=== PATIENT | male | born 1985 | race Caucasian/White ===

== ENCOUNTER → 2021-07-16 | Outpatient (REF) | payer OTHER ==
[2021-07-16 09:21] LABS: SEMEN APPEARANCE OPAQUE (OPAQUE); SEMEN VISCOSITY LIQUID (LIQUID); SEMEN pH 8.5 (7.0-8.0)
[2021-07-16 09:22] LABS: SPERM CONCENTRATION 114.6 M/ml (>=15.0); WBC CONCENTRATION <=1 M/ml (<=1 M/ml)
== END ==
LOC: M LAB REF 09:16
PROVIDERS: ATTEND Obstetrics & Gynecology
DX: N46.8 Other male infertility (principal)

== ENCOUNTER 2023-05-29 21:56 | Inpatient (IN) | payer OTHER ==
[~2023-05-29] VITALS: Ht 170.2 cm; Wt 89.5 kg
[2023-05-29 22:52] LABS: BASO # 0.1 10^3/uL (0.0-0.2); BASO % 0.3 % (0.0-1.0); EOS # 0.1 10^3/uL (0.0-0.5); EOS % 0.5 % (0.0-3.0); HEMATOCRIT 47.3 % (42.0-52.0); HEMOGLOBIN 16.2 g/dl (13.5-17.5); LYMPH # 2.3 10^3/uL (1.5-5.0); LYMPH % 15.2 % (24.0-44.0); MEAN CORPUSCULAR HEMOGLOBIN 30.2 pg (27.0-33.0); MEAN CORPUSCULAR HGB CONC 34.2 g/dl (32.0-36.5); MEAN CORPUSCULAR VOLUME 88.1 fl (80.0-96.0); MONO # 1.4 10^3/uL (0.0-0.8); MONO % 9.4 % (2.0-8.0); NEUTROPHILS # 11.3 10^3/uL (1.5-8.5); NEUTROPHILS % 74.1 % (36.0-66.0); PLATELET COUNT, AUTOMATED 410 10^3/uL (150-450); RED BLOOD COUNT 5.37 10^6/uL (4.30-6.10); WHITE BLOOD COUNT 15.2 10^3/uL (4.0-10.0)
[2023-05-29 23:18] LABS: RSV AMPLIFICATION NEGATIVE (NEGATIVE)
[2023-05-29 23:19] LABS: ALBUMIN 4.4 G/DL (3.2-5.2); BILIRUBIN,DIRECT 0.2 MG/DL (<0.4); BILIRUBIN,TOTAL 0.8 MG/DL (0.3-1.2); TOTAL PROTEIN 7.6 G/DL (5.7-8.2)
[2023-05-30] MEDS ORDERED: METOCLOPRAMIDE INJ 10MG/2ML VIAL IV ONE (00:05)
[2023-05-30] MEDS ORDERED: NS 1,000 ML IV ONE (00:05)
[2023-05-30] MEDS ORDERED: KETOROLAC 30 MG/ML 1ML VIAL IM ONE (00:05)
[2023-05-30] MEDS ORDERED: ISOVUE-370 76% 100ML VIAL As Ordered ONE (01:50)
[2023-05-30] MEDS ORDERED: HOME MED LIST COMPLETE! XX SCH (04:20)
[2023-05-30] MEDS ORDERED: HYDROmorphone 2 MG TAB PO PRN ×2 (04:50→12:00)
[2023-05-30 06:45] VITALS: BP 131/73; TEMP 98.1; O2SAT 94
[2023-05-30] MEDS: LR 1,000 ML IV SCH ×3 (06:57→21:56)
[2023-05-30] MEDS: HEPARIN SOD (PORCINE) 5000UNITS/ML 1ML VIAL/SYRINGE SC SCH ×3 (07:06→20:54)
[2023-05-30 07:56] LABS: BASO % 0.2 % (0.0-1.0); EOS % 0.1 % (0.0-3.0); HEMOGLOBIN 14.4 g/dl (13.5-17.5); LYMPH # 0.6 10^3/uL (1.5-5.0); LYMPH % 5.3 % (24.0-44.0); MEAN CORPUSCULAR HEMOGLOBIN 30.9 pg (27.0-33.0); MEAN CORPUSCULAR HGB CONC 35.1 g/dl (32.0-36.5); MONO # 0.3 10^3/uL (0.0-0.8); MONO % 2.8 % (2.0-8.0); NEUTROPHILS # 10.5 10^3/uL (1.5-8.5); NEUTROPHILS % 91.3 % (36.0-66.0); PLATELET COUNT, AUTOMATED 325 10^3/uL (150-450); RED BLOOD COUNT 4.66 10^6/uL (4.30-6.10); WHITE BLOOD COUNT 11.5 10^3/uL (4.0-10.0)
[2023-05-30 08:22] LABS: BLOOD UREA NITROGEN 17 MG/DL (9-23); CALCIUM LEVEL 8.8 MG/DL (8.5-10.1); CARBON DIOXIDE LEVEL 24 MMOL/L (20-31); CHLORIDE LEVEL 107 MMOL/L (98-107); CREATININE FOR GFR 1.02 MG/DL (0.70-1.30); GLOMERULAR FILTRATION RATE > 60.0 (>60); GLUCOSE, FASTING 155 MG/DL (60-100); MAGNESIUM LEVEL 1.9 MG/DL (1.8-2.4); POTASSIUM SERUM 4.6 MMOL/L (3.5-5.1); SODIUM LEVEL 139 MMOL/L (136-145)
[2023-05-30] MEDS: PANTOPRAZOLE 40MG VIAL IV SCH (09:35)
[2023-05-30 14:00] VITALS: BP_SYST 121; BP_DIAS 71; BP_DIAS 72; TEMP 98.1; TEMP 98.4; O2SAT 94; O2SAT 95
[2023-05-30] MEDS: ONDANSETRON 4MG 2ML VIAL IV PRN (15:45)
[2023-05-30 21:30] VITALS: BP 120/67; TEMP 97.5; O2SAT 98
[2023-05-30] MEDS ORDERED: KETOROLAC 30 MG/ML 1ML VIAL IV ONE (23:00)
[2023-05-31] MEDS: ONDANSETRON 4MG 2ML VIAL IV PRN (03:29)
[2023-05-31] MEDS: KETOROLAC 30 MG/ML 1ML VIAL IV PRN ×3 (03:34→20:08)
[2023-05-31] MEDS: HEPARIN SOD (PORCINE) 5000UNITS/ML 1ML VIAL/SYRINGE SC SCH ×3 (05:20→22:36)
[2023-05-31 05:25] VITALS: BP 118/68; TEMP 98.2; O2SAT 92
[2023-05-31] MEDS: LR 1,000 ML IV SCH ×3 (06:01→22:51)
[2023-05-31 06:19] LABS: BASO % 0.2 % (0.0-1.0); HEMATOCRIT 38.1 % (42.0-52.0); LYMPH # 0.9 10^3/uL (1.5-5.0); LYMPH % 8.2 % (24.0-44.0); MEAN CORPUSCULAR HEMOGLOBIN 30.5 pg (27.0-33.0); MEAN CORPUSCULAR HGB CONC 34.1 g/dl (32.0-36.5); MEAN CORPUSCULAR VOLUME 89.4 fl (80.0-96.0); MONO # 0.9 10^3/uL (0.0-0.8); MONO % 8.5 % (2.0-8.0); NEUTROPHILS % 82.6 % (36.0-66.0); PLATELET COUNT, AUTOMATED 263 10^3/uL (150-450); RED BLOOD COUNT 4.26 10^6/uL (4.30-6.10); WHITE BLOOD COUNT 10.9 10^3/uL (4.0-10.0)
[2023-05-31] MEDS: PERCOCET 5MG/325MG TAB PO PRN ×3 (06:32→20:42)
[2023-05-31 06:47] LABS: BLOOD UREA NITROGEN 18 MG/DL (9-23); CALCIUM LEVEL 8.3 MG/DL (8.5-10.1); CARBON DIOXIDE LEVEL 24 MMOL/L (20-31); CHLORIDE LEVEL 106 MMOL/L (98-107); GLOMERULAR FILTRATION RATE > 60.0 (>60); GLUCOSE, FASTING 107 MG/DL (60-100); MAGNESIUM LEVEL 1.7 MG/DL (1.8-2.4); POTASSIUM SERUM 3.9 MMOL/L (3.5-5.1); SODIUM LEVEL 141 MMOL/L (136-145)
[2023-05-31] MEDS: PANTOPRAZOLE 40MG VIAL IV SCH (08:48)
[2023-05-31] MEDS ORDERED: MAG SULF 1GM/100ML (MAG RUN) 1 GM in IV 1 EA IV ONE (09:00)
[2023-05-31] MEDS ORDERED: SIMETHICONE 80MG CHEW TAB PO PRN (11:50)
[2023-05-31 14:00] VITALS: BP 117/66; TEMP 98.2; O2SAT 89
[2023-05-31 20:44] VITALS: BP 121/65; TEMP 102.7; O2SAT 94
[2023-05-31] MEDS ORDERED: PROHANCE 279.3MG/ML 5ML VIAL As Ordered ONE (21:22)
[2023-05-31] MEDS ORDERED: PROHANCE 279.3MG/ML 15ML VIAL As Ordered ONE (21:22)
[2023-05-31 22:37] VITALS: TEMP 99.7
[2023-06-01] VITALS (9 sets, daily range): BP systolic 103–135; BP diastolic 47–69; TEMP 98.1–101; O2SAT 95
[2023-06-01] MEDS: ACETAMINOPHEN TAB 650MG DOSE (2X325MG) PO PRN ×2 (01:02→21:39)
[2023-06-01] MEDS: KETOROLAC 30 MG/ML 1ML VIAL IV PRN ×2 (02:10→18:34)
[2023-06-01] MEDS: PERCOCET 5MG/325MG TAB PO PRN ×4 (02:33→20:32)
[2023-06-01] MEDS: HEPARIN SOD (PORCINE) 5000UNITS/ML 1ML VIAL/SYRINGE SC SCH ×3 (05:19→21:39)
[2023-06-01] MEDS: LR 1,000 ML IV SCH ×2 (06:35→12:23)
[2023-06-01] MEDS: ONDANSETRON 4MG 2ML VIAL IV PRN ×3 (07:18→21:41)
[2023-06-01] MEDS ORDERED: DOCUSATE SODIUM 100MG CAPSULE PO SCH (09:00)
[2023-06-01] MEDS ORDERED: PILL CUTTER 1 EACH XX PRN (09:25)
[2023-06-01] MEDS: PIPERACILLIN/TAZOBACTAM SOD 3.375 GM in D5W MINI-BAG PLUS 50 ML IV SCH ×3 (09:35→20:32)
[2023-06-01] MEDS: PANTOPRAZOLE 40MG VIAL IV SCH (09:36)
[2023-06-01] MEDS: SENNA 8.6 MG TAB (SENOKOT) PO SCH ×2 (09:36→20:24)
[2023-06-01] MEDS: DOCUSATE SODIUM 100MG CAPSULE PO SCH ×2 (09:36→20:24)
[2023-06-01] MEDS ORDERED: HYDROMORPHONE HCL 0.5 MG/ 0.5 ML SYRINGE IV ONE (10:20)
[2023-06-01] MEDS ORDERED: LR 1,000 ML IV ONE (10:20)
[2023-06-01] MEDS ORDERED: KETOROLAC 30 MG/ML 1ML VIAL IV ONE (10:20)
[2023-06-01] MEDS ORDERED: METOCLOPRAMIDE INJ 10MG/2ML VIAL IV ONE (10:20)
[2023-06-01 12:28] LABS: MAGNESIUM LEVEL 1.6 MG/DL (1.8-2.4)
[2023-06-01 12:35] LABS: PROCALCITONIN 1.16 ng/ml
[2023-06-01 12:40] LABS: C REACTIVE PROTEIN QUANTITATIV 35.7 MG/DL (<1.0)
[2023-06-01] MEDS ORDERED: MAG SULF 1GM/100ML (MAG RUN) 1 GM in IV 1 EA IV ONE (13:00)
[2023-06-02] MEDS: LR 1,000 ML IV SCH ×3 (00:22→20:37)
[2023-06-02 01:40] VITALS: TEMP 98.5
[2023-06-02] MEDS: SIMETHICONE 80MG CHEW TAB PO PRN (02:10)
[2023-06-02] MEDS: PIPERACILLIN/TAZOBACTAM SOD 3.375 GM in D5W MINI-BAG PLUS 50 ML IV SCH ×4 (02:11→20:37)
[2023-06-02] MEDS: KETOROLAC 30 MG/ML 1ML VIAL IV PRN (03:03)
[2023-06-02] MEDS ORDERED: PROMETHAZINE 25MG/ML 1ML VIAL IV ONE (04:00)
[2023-06-02] MEDS: PERCOCET 5MG/325MG TAB PO PRN (04:25)
[2023-06-02] MEDS: HEPARIN SOD (PORCINE) 5000UNITS/ML 1ML VIAL/SYRINGE SC SCH ×3 (05:04→20:40)
[2023-06-02 05:18] VITALS: BP 107/58; TEMP 99.8; O2SAT 97
[2023-06-02 06:48] LABS: BASO % 0.1 % (0.0-1.0); HEMATOCRIT 34.8 % (42.0-52.0); HEMOGLOBIN 11.7 g/dl (13.5-17.5); LYMPH # 0.7 10^3/uL (1.5-5.0); LYMPH % 5.3 % (24.0-44.0); MEAN CORPUSCULAR HEMOGLOBIN 30.3 pg (27.0-33.0); MEAN CORPUSCULAR HGB CONC 33.6 g/dl (32.0-36.5); MEAN CORPUSCULAR VOLUME 90.2 fl (80.0-96.0); MONO # 1.4 10^3/uL (0.0-0.8); MONO % 10.2 % (2.0-8.0); NEUTROPHILS # 11.3 10^3/uL (1.5-8.5); PLATELET COUNT, AUTOMATED 242 10^3/uL (150-450); RED BLOOD COUNT 3.86 10^6/uL (4.30-6.10); WHITE BLOOD COUNT 13.5 10^3/uL (4.0-10.0)
[2023-06-02 07:16] LABS: BLOOD UREA NITROGEN 15 MG/DL (9-23); CALCIUM LEVEL 8.4 MG/DL (8.5-10.1); CARBON DIOXIDE LEVEL 29 MMOL/L (20-31); CHLORIDE LEVEL 104 MMOL/L (98-107); CREATININE FOR GFR 1.06 MG/DL (0.70-1.30); GLOMERULAR FILTRATION RATE > 60.0 (>60); GLUCOSE, FASTING 118 MG/DL (60-100); MAGNESIUM LEVEL 1.8 MG/DL (1.8-2.4); POTASSIUM SERUM 3.9 MMOL/L (3.5-5.1); SODIUM LEVEL 138 MMOL/L (136-145)
[2023-06-02] MEDS: DOCUSATE SODIUM 100MG CAPSULE PO SCH ×2 (09:09→20:38)
[2023-06-02] MEDS: SENNA 8.6 MG TAB (SENOKOT) PO SCH ×2 (09:09→20:38)
[2023-06-02] MEDS: PANTOPRAZOLE 40MG VIAL IV SCH (09:09)
[2023-06-02] MEDS: ONDANSETRON 4MG 2ML VIAL IV PRN (09:29)
[2023-06-02] MEDS: FIORICET TAB PO PRN ×3 (12:14→20:38)
[2023-06-02 14:00] VITALS: BP 146/85; TEMP 97.5; O2SAT 97
[2023-06-02] MEDS: ACETAMINOPHEN TAB 650MG DOSE (2X325MG) PO PRN (21:45)
[2023-06-02 22:00] VITALS: BP 154/75; TEMP 102.1; O2SAT 97
[2023-06-03 02:05] VITALS: TEMP 101.5
[2023-06-03] MEDS: ACETAMINOPHEN TAB 650MG DOSE (2X325MG) PO PRN (02:09)
[2023-06-03] MEDS: PIPERACILLIN/TAZOBACTAM SOD 3.375 GM in D5W MINI-BAG PLUS 50 ML IV SCH ×2 (02:10→10:45)
[2023-06-03] MEDS: SIMETHICONE 80MG CHEW TAB PO PRN ×2 (03:54→09:12)
[2023-06-03] MEDS: PERCOCET 5MG/325MG TAB PO PRN (04:29)
[2023-06-03] MEDS: LR 1,000 ML IV SCH ×3 (04:50→12:50)
[2023-06-03 06:00] VITALS: BP 123/67; TEMP 101.5; O2SAT 95
[2023-06-03] MEDS: HEPARIN SOD (PORCINE) 5000UNITS/ML 1ML VIAL/SYRINGE SC SCH ×2 (06:03→14:00)
[2023-06-03 06:12] LABS: BASO % 0.2 % (0.0-1.0); EOS % 0.1 % (0.0-3.0); HEMATOCRIT 32.1 % (42.0-52.0); HEMOGLOBIN 10.8 g/dl (13.5-17.5); LYMPH # 0.9 10^3/uL (1.5-5.0); LYMPH % 7.6 % (24.0-44.0); MEAN CORPUSCULAR HEMOGLOBIN 30.3 pg (27.0-33.0); MEAN CORPUSCULAR HGB CONC 33.6 g/dl (32.0-36.5); MEAN CORPUSCULAR VOLUME 89.9 fl (80.0-96.0); MONO # 1.5 10^3/uL (0.0-0.8); NEUTROPHILS # 9.3 10^3/uL (1.5-8.5); NEUTROPHILS % 78.5 % (36.0-66.0); PLATELET COUNT, AUTOMATED 262 10^3/uL (150-450); RED BLOOD COUNT 3.57 10^6/uL (4.30-6.10); WHITE BLOOD COUNT 11.8 10^3/uL (4.0-10.0)
[2023-06-03 06:33] LABS: BLOOD UREA NITROGEN 11 MG/DL (9-23); CALCIUM LEVEL 7.8 MG/DL (8.5-10.1); CARBON DIOXIDE LEVEL 29 MMOL/L (20-31); CHLORIDE LEVEL 103 MMOL/L (98-107); CREATININE FOR GFR 0.98 MG/DL (0.70-1.30); GLOMERULAR FILTRATION RATE > 60.0 (>60); GLUCOSE, FASTING 125 MG/DL (60-100); MAGNESIUM LEVEL 1.6 MG/DL (1.8-2.4); POTASSIUM SERUM 3.5 MMOL/L (3.5-5.1); SODIUM LEVEL 137 MMOL/L (136-145)
[2023-06-03 07:10] LABS: MONO % 12.8 % (2.0-8.0)
[2023-06-03] MEDS ORDERED: NIRMATRELVIR/RITONAVIR CO-PACK (EMERGENCY USE AUTH) PO SCH (09:00)
[2023-06-03] MEDS: PANTOPRAZOLE 40MG VIAL IV SCH (09:00)
[2023-06-03] MEDS: SENNA 8.6 MG TAB (SENOKOT) PO SCH (09:00)
[2023-06-03] MEDS ORDERED: MAG SULF 1GM/100ML (MAG RUN) 1 GM in IV 1 EA IV ONE (09:00)
[2023-06-03] MEDS: DOCUSATE SODIUM 100MG CAPSULE PO SCH (09:00)
[2023-06-03] MEDS ORDERED: SENN-188 PO (10:03)
[2023-06-03] MEDS ORDERED: SIME80TA16 PO (10:03)
[2023-06-03] MEDS ORDERED: PERCOCET PO (10:03)
[2023-06-03] MEDS ORDERED: AMOX875T2 PO ×3 (10:03→16:38)
[2023-06-03] MEDS ORDERED: BACI1CAP PO (10:04)
[2023-06-03] MEDS: FIORICET TAB PO PRN (10:43)
[2023-06-03 10:52] LABS: ERYTHROCYTE SEDIMENTATION RATE 112 mm/hr (0-15)
[2023-06-03 11:00] LABS: PROCALCITONIN 1.33 ng/ml
[2023-06-03] MEDS ORDERED: NIRM1TAB PO (12:26)
[2023-06-03] MEDS ORDERED: ZOSY1SOL6 IV (13:15)
[2023-06-03 14:00] VITALS: BP 130/80; TEMP 98.4; TEMP 99.9; O2SAT 96
== END 2023-06-03 16:46 | disposition left against medical advice (07) | DRG 391 ==
LOC: M ED 21:56 → M ED INP 05-30 04:47 → M MSPAV 05-30 06:37
PROVIDERS: ADMIT Internal Medicine; ATTEND General Practice
DX: R19.02 Left upper quadrant abdominal swelling, mass and lump (principal); U07.1 COVID-19; K56.609 Unspecified intestinal obstruction, unspecified as to partial versus complete obstruction; E83.42 Hypomagnesemia

== ENCOUNTER → 2023-07-22 | Outpatient (CLI) | payer OTHER ==
[~2023-07-22] MED LIST: AMOX875T2 PO; BACI1CAP PO; GASTROGRAFIN SOLUTION 30ML As Ordered ONE; ISOVUE-370 76% 100ML VIAL As Ordered ONE; NIRM1TAB PO; PERCOCET PO; SENN-188 PO; SIME80TA16 PO; ZOSY1SOL6 IV
== END ==
LOC: M RAD 12:47
PROVIDERS: ATTEND Nurse Practitioner Family
DX: R52 Pain, unspecified (principal); Z98.890 Other specified postprocedural states
CPT/HCPCS: 74177; Q9963; Q9967